=== PATIENT | female | born 2000 ===

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

== ENCOUNTER 2021-02-04 05:37 | Inpatient (IN) | payer MEDICAID, OTHER ==
[2021-02-04] MEDS ORDERED: LACTATED RINGERS 1,000 ML ONE (06:10)
[2021-02-04] MEDS ORDERED: AMPICILLIN/NS 2 GM/100 ML 2 GM/100 ML BAG IV ONE ×2 (06:10→06:16)
[2021-02-04] MEDS ORDERED: miSOPROStol 200 MCG TAB PR PRN ×2 (06:16→07:31)
[2021-02-04] MEDS ORDERED: OXYTOCIN 10 UNIT/1 ML INJ IM PRN ×2 (06:16→07:31)
[2021-02-04] MEDS ORDERED: TERBUTALINE 1 MG/1 ML INJ SUB-Q PRN ×2 (06:16→07:31)
[2021-02-04] MEDS ORDERED: LIDOCAINE (2%) 20 MG/1 ML VIAL 20 ML MDV INFILTRATI ONE (06:16)
[2021-02-04] MEDS ORDERED: CARBOPROST TROMETHAMINE 250 MCG/1 ML INJ IM PRN ×2 (06:16→07:31)
[2021-02-04] MEDS ORDERED: ePHEDrine SULFATE 50 MG/1 ML INJ IV PRN ×3 (06:16→08:00)
[2021-02-04] MEDS ORDERED: fentaNYL 100 MCG/2 ML INJ IV PRN ×2 (06:16→08:00)
[2021-02-04] MEDS ORDERED: MINERAL OIL 30 ML ORAL LIQD PO PRN ×2 (06:16→07:31)
[2021-02-04] MEDS ORDERED: BUTORPHANOL 2 MG/1 ML INJ IV PRN (06:16)
[2021-02-04] MEDS ORDERED: LOPERAMIDE 2 MG CAP PO PRN ×2 (06:16→08:00)
[2021-02-04] MEDS ORDERED: METHYLERGONOVINE MALEATE 0.2 MG/ML VIAL IM PRN ×2 (06:16→07:31)
[2021-02-04] MEDS ORDERED: ONDANSETRON 4 MG/2 ML INJ IV PRN ×2 (06:16→08:30)
[2021-02-04] MEDS ORDERED: ACETAMINOPHEN 325 MG TAB PO PRN ×3 (06:16→08:00)
[2021-02-04] MEDS ORDERED: LACTATED RINGERS 1,000 ML IV SCH ×3 (06:30→08:00)
[2021-02-04 06:39] LABS: Hematocrit 29.8 % (30.3-42.9); Hemoglobin 9.5 gm/dl (10.1-14.3); Mean Corpuscular HGB Conc 32 % (30-34); Mean Corpuscular Volume 77 fl (79-97); Platelet Count 261 K/mm3 (140-440); Red Blood Count 3.87 M/mm3 (3.65-5.03); Red Cell Distribution Width 17.9 % (13.2-15.2)
[2021-02-04] MEDS ORDERED: LACTATED RINGERS 250 ML IV SOLN IV ONE (06:55)
[2021-02-04] MEDS ORDERED: diphenhydrAMINE 50 MG/ML VIAL IV PRN (07:00)
[2021-02-04] MEDS ORDERED: NalbUPHINE 10 MG/1 ML INJ IV PRN ×2 (07:00→08:00)
[2021-02-04] MEDS ORDERED: fentaNYL-BUPIV 2 MCG/ML-0.125% 200 MCG/100 ML BAG EPIDURAL SCH (07:00)
[2021-02-04] MEDS ORDERED: NALOXONE 2 MG/2 ML INJ IV PRN (07:00)
[2021-02-04] MEDS: OXYTOCIN DRIP 30 UNITS/500 ML BAG IV SCH ×2 (07:07→07:37)
--- NOTE | 2021-02-04 07:24 | Procedure Note ---
Date of procedure: 02/04/21 Pre-op diagnosis: term , labor Post-op diagnosis: same Procedure: Document dictating Patient Preoperative diagnosis.active labor,term . Postoperative diagnosis same. Spontaneous vaginal delivery, spontaneous., No tears. Liveborn male 9 pounds 13 ounces [id number],9 Complications none. Estimated blood loss 200 cc. Patient tolerated procedure well. Anesthesia: none Surgeon: TYREL MANNING Estimated blood loss: other (200 ccs) Pathology: none Specimen disposition: discarded Condition: stable Disposition: floor
--- NOTE | 2021-02-04 07:29 | History and Physical Report ---
History of Present Illness Date of examination: 02/04/21 Date of admission: 02/04/21 Chief complaint: labor History of present illness: Patient is a 20-year-old female lady 2 para 1-0-0-1. is not available. She apparently had a benign course. No other records. Active labor. Past History Past Medical History: no pertinent history Past Surgical History: no surgical history Family/Genetic History: none Social history: no significant social history, single - Obstetrical History Expected Date of Delivery: 02/07/21 Actual Gestation: 39 Week(s) 4 Day(s) : 1 Para: 1 Hx # Term Pregnancies: 1 Number of Pregnancies: 0 Spontaneous Abortions: 0 Induced : 0 Number of Living Children: 1 Medications and Allergies Allergies Allergy/AdvReac Type Severity Reaction Status Date / Time shellfish derived AdvReac Itching Verified 05/17/19 02:33 Home Medications Medication Instructions Recorded Confirmed Last Taken Type Plus Tablet 1 tab PO DAILY 05/17/19 05/17/19 05/16/19 09:00 History Active Meds: Active Medications Acetaminophen (Acetaminophen 325 Mg Tab) 650 mg PO Q4H PRN PRN Reason: Pain, Mild (1-3) Butorphanol Tartrate (Butorphanol 2 Mg/1 Ml Inj) 1 mg IV Q2H PRN PRN Reason: Pain, Moderate(4-6) LABOR PAIN Carboprost Tromethamine (Carboprost Tromethamine 250 Mcg/1 Ml Inj) 250 mcg IM ONCE PRN PRN Reason: Uterine Bleeding Diphenhydramine HCl (Diphenhydramine 50 Mg/Ml Vial) 12.5 mg IV Q2H PRN PRN Reason: Itching Ephedrine Sulfate (Ephedrine Sulfate 50 Mg/1 Ml Inj) 10 mg IV Q2M PRN PRN Reason: Hypotension Fentanyl (Fentanyl 100 Mcg/2 Ml Inj) 100 mcg IV Q2H PRN PRN Reason: Pain,Severe (7-10) LABOR PAIN Oxytocin/Sodium Chloride (Pitocin/Ns 30 Unit/500ml) 30 units in 500 mls @ 40 mls/hr IV TITR NATALI; Protocol Last Admin: 02/04/21 07:07 Dose: 40 ml/hr, 40 mls/hr Documented by: Fentanyl/Bupivacaine/Sodium Chlor (Fentanyl-Bupiv 2 Mcg/Ml-0.125%) 200 mcg in 100 mls @ 12 mls/hr EPIDURAL TITR NATALI; Protocol Lactated Ringer's (Lactated Ringers) 1,000 mls @ 125 mls/hr IV DIRECT NATALI Loperamide HCl (Loperamide 2 Mg Cap) 2 mg PO ONCE PRN PRN Reason: give with Hemabate Methylergonovine Maleate (Methylergonovine Maleate 0.2 Mg/Ml Vial) 0.2 mg IM ONCE PRN PRN Reason: Uterine Bleeding Mineral Oil (Mineral Oil 30 Ml Oral Liqd) 30 ml PO QHS PRN PRN Reason: Constipation Misoprostol (Misoprostol 200 Mcg Tab) 800 mcg DE ONCE PRN PRN Reason: Uterine Bleeding Nalbuphine HCl (Nalbuphine 10 Mg/1 Ml Inj) 2.5 mg IV Q2H PRN PRN Reason: Itching Naloxone HCl (Naloxone 2 Mg/2 Ml Inj) 0.2 mg IV Q5M PRN PRN Reason: Respiratory sedation Ondansetron HCl (Ondansetron 4 Mg/2 Ml Inj) 4 mg IV Q8H PRN PRN Reason: Nausea And Vomiting Oxytocin (Oxytocin 10 Unit/1 Ml Inj) 10 unit IM ONCE PRN PRN Reason: Uterine Bleeding Terbutaline Sulfate (Terbutaline 1 Mg/1 Ml Inj) 0.25 mg SUB-Q ONCE PRN PRN Reason: Hyperstimulation/Hypertonicity Review of Systems All systems: negative - Physical Exam Breasts: Positive: normal Cardiovascular: Regular rate Lungs: Positive: Clear to auscultation, Normal air movement, Other Abdomen: Positive: normal appearance, normal bowel sounds Genitourinary (Female): Positive: normal external genitalia, normal perenium Vulva: both: normal Vagina: Positive: normal moisture Cervix: Negative: lesion, discharge Uterus: Positive: normal contour (terem size) Anus/Rectum: Positive: normal perianal skin, heme negative. Negative: rectal mass, hemorrhoids Extremities: Deep Tendon Reflex Grade: Normal +2 - Obstetrical FHR: category 1 Uterine Contraction Monitor Mode: External Cervical Dilatation: 10 Cervical Effacement Percentage: 100 station: +4 Uterine Contraction Frequency (min): q3min Uterine Contraction Duration: 1 min Uterine Contraction Pattern: Regular Uterine Tone Measurement Phase: Resting Uterine Contraction Intensity: Strong/Firm Results Result Diagrams: 02/04/21 06:20 Abnormal lab results 08/17/21 Range/Units 06:20 Hgb 9.5 L (10.1-14.3) gm/dl Hct 29.8 L (30.3-42.9) % MCV 77 L (79-97) fl MCH 25 L (28-32) pg RDW 17.9 H (13.2-15.2) % All other labs normal. Assessment and Plan TERM , ACTIVE LABOR.EXPECTANT VAG DELIVERY.
[2021-02-04] MEDS ORDERED: PROMETHAZINE 25 MG TAB PO PRN (07:37)
[2021-02-04] MEDS ORDERED: PROMETHAZINE 25 MG RECT SUPP PR PRN (07:37)
[2021-02-04] MEDS ORDERED: OXYTOCIN DRIP 30 UNITS/500 ML BAG IV SCH ×2 (08:00)
[2021-02-04] MEDS ORDERED: diphenhydrAMINE 25 MG CAP PO PRN (08:00)
[2021-02-04] MEDS ORDERED: LANOLIN/ZINC/DIMETHICONE (LANSINOH) 7 GM TP PRN (08:00)
[2021-02-04] MEDS ORDERED: HYDROcodone/ACETAMINOPHEN 5-325 MG TAB PO PRN (08:00)
[2021-02-04] MEDS ORDERED: LIDOCAINE (2%) 20 MG/1 ML VIAL 20 ML MDV INFILTRATI NR (08:00)
[2021-02-04] MEDS ORDERED: WITCH HAZEL/ GLYCERIN PAD TP PRN (08:00)
[2021-02-04 13:59] LABS: Hematocrit 30.2 % (30.3-42.9); Hemoglobin 9.6 gm/dl (10.1-14.3)
[2021-02-04 19:30] LABS: Hematocrit 29.5 % (30.3-42.9); Hemoglobin 9.3 gm/dl (10.1-14.3)
[2021-02-04] MEDS ORDERED: MAGNESIUM HYDROXIDE (MOM) ORAL LIQD UDC PO PRN (22:00)
[2021-02-04] MEDS: IBUPROFEN 600 MG TAB PO SCH (23:08)
--- NOTE | 2021-02-05 09:25 | Progress Note ---
Assessment and Plan A: S/P P: D/C home per pt request Subjective - Subjective Date of service: 02/05/21 Principal diagnosis: s/p Patient reports: appetite normal, voiding normally, pain well controlled, ambulating normally [place]: doing well, bottle feeding Objective - Vital Signs Latest vital signs: Vital Signs Temp Pulse Resp BP BP Pulse Ox Pulse Ox 02/05/21 08:36 98.1 F 68 16 102/65 97 02/05/21 08:00 100 02/05/21 04:00 98.6 F 69 18 103/70 02/05/21 00:56 97.9 F 78 18 112/68 98 02/04/21 20:01 98.0 F 85 18 103/57 99 02/04/21 20:00 100 02/04/21 16:37 98.6 F 75 22 101/58 98 02/04/21 12:28 98.2 F 65 18 107/56 98 02/04/21 10:45 100 02/04/21 10:00 98.4 F 90 20 109/63 100 Intake and Output 02/04/21 02/05/21 02/05/21 22:59 06:59 14:59 Intake Total 660 500 Output Total 600 Balance 60 500 Intake: Oral 360 200 Intake, Free Water 300 300 Output: Urine 600 Void 600 Other: Total, Intake Amount 360 200 Total, Output Amount 600 # Voids Void 1 1 - Exam Breasts: Present: normal Abdomen: Present: normal appearance, soft, normal bowel sounds Vulva: both: normal Uterus: Present: normal, firm, fundal height below umbilicus Extremities: Present: normal - Labs Labs: Abnormal lab results 02/04/21 02/04/21 Range/Units 13:02 18:39 Hgb 9.6 L 9.3 L (10.1-14.3) gm/dl Hct 30.2 L 29.5 L (30.3-42.9) %
--- NOTE | 2021-02-05 09:33 | Discharge Summary ---
Providers - Providers Date of Admission: 02/04/21 05:38 Date of discharge: 02/05/21 Attending physician: TYREL MANNING MD Primary care physician: TYREL MANNING MD Hospitalization Reason for admission: active labor Delivery: Episiotomy: none Laceration: none Other procedures: none complications: other (asymptomatic anemia) Discharge diagnosis: IUP at term delivered baby: male Hospital course: Pt was admitted in active labor and had a . She was prescribed Fe for asymptomatic anemia with no further pp complications. See H&P, delivery summary, and pp notes. Condition at discharge: Stable Disposition: 01 HOME / SELF CARE / HOMELESS Plan - Discharge Medications Prescriptions: Ferrous Sulfate [Feosol 325 MG tab] 325 mg PO BID #120 tablet Ibuprofen [Motrin 600 MG tab] 600 mg PO Q6H PRN #30 tablet PRN Reason: Menstrual Cramps - Provider Discharge Summary Additional instructions: [] Smoking cessation referral if applicable(refer to patient education folder for contact #) [] Refer to [facility] Booklet Call your doctor immediately for: * Fever > 100.5 * Heavy vaginal bleeding ( >1 pad per hour) * Severe persistent headache * Shortness of breath * Reddened, hot, painful area to leg or breast * Drainage or odor from incision. * Keep incision clean and dry at all times and follow doctor's instructions regarding bathing/showering - Follow up plan Follow up: TYREL MANNING MD [Primary Care Provider] - 6 Weeks
[2021-02-05] MEDS ORDERED: FERROUS SULFATE 325 MG TAB PO SCH (10:00)
[2021-02-05] MEDS: IBUPROFEN 600 MG TAB PO SCH (12:04)
[2021-02-05 18:20] VITALS: BP 111/73
== END 2021-02-05 18:27 | disposition home or self-care (01) | DRG 807 ==
LOC: TRG 05:37 → LD 05:38 → APU 05:38 → LD 06:06 → TRG 07:31 → OB 09:27
PROC: 10E0XZZ Delivery of Products of Conception, External Approach (ICD-10-PCS; principal; 2021-02-04)
DX: O90.81 Anemia of the puerperium (principal); Z37.0 Single live birth; Z3A.39 39 weeks gestation of pregnancy; Z20.822 Contact with and (suspected) exposure to COVID-19
CPT/HCPCS: 36415; 85014; 85018; 85027; 86592; 86850; 86900; 86901; 99211; G0378; G0463; J0290; J2590; U0003